=== PATIENT | female | born 1960 | race Caucasian/White ===

== ENCOUNTER 2017-10-05 17:39 | Emergency (ER) | payer MEDICAID ==
[~2017-10-05] VITALS: Ht 165.1 cm; Wt 68.0 kg
[2017-10-05 19:21] VITALS: BP 123/53
== END 2017-10-05 19:24 | disposition home or self-care (01) ==
LOC: ER 17:40
DX: M17.11 Unilateral primary osteoarthritis, right knee (principal); F17.200 Nicotine dependence, unspecified, uncomplicated; F15.10 Other stimulant abuse, uncomplicated
CPT/HCPCS: 73564; 99284

== ENCOUNTER 2017-10-23 22:17 | Emergency (ER) | payer MEDICAID ==
[~2017-10-23] VITALS: Ht 167.6 cm; Wt 67.8 kg
[2017-10-23 23:07] VITALS: BP 135/84
[2017-10-23] MEDS ORDERED: cephalexin 250mg capsule PO ONE (23:35)
[2017-10-23] MEDS ORDERED: sulfamethoxazole/trimethoprim DS (800/160mg) tablet PO ONE (23:35)
[2017-10-23] MEDS ORDERED: CEPH500C5 PO (23:49)
[2017-10-23] MEDS ORDERED: BACDS PO (23:49)
== END 2017-10-24 00:25 | disposition home or self-care (01) ==
LOC: ER 22:18
DX: L03.211 Cellulitis of face (principal); F17.210 Nicotine dependence, cigarettes, uncomplicated; F15.90 Other stimulant use, unspecified, uncomplicated; Z56.0 Unemployment, unspecified; Z60.2 Problems related to living alone; Z79.899 Other long term (current) drug therapy
CPT/HCPCS: 99283

== ENCOUNTER 2018-09-29 20:00 | Emergency (ER) | payer MEDICAID ==
[~2018-09-29] VITALS: Ht 165.1 cm; Wt 100.0 kg
[~2018-09-29 20:00] MED LIST: FAMO-128 PO; IBUP-1985 PO
[2018-09-29 20:59] VITALS: BP 125/70
== END 2018-09-29 21:06 | disposition home or self-care (01) ==
LOC: ER 20:00
DX: N93.9 Abnormal uterine and vaginal bleeding, unspecified (principal); K21.9 Gastro-esophageal reflux disease without esophagitis; F15.90 Other stimulant use, unspecified, uncomplicated; Z79.899 Other long term (current) drug therapy; Z56.0 Unemployment, unspecified; Z60.2 Problems related to living alone
CPT/HCPCS: 99283

== ENCOUNTER 2018-11-11 20:11 | Emergency (ER) | payer MEDICAID ==
[~2018-11-11] VITALS: Ht 165.1 cm; Wt 110.0 kg
[~2018-11-11 20:11] MED LIST changes: +CYCL-1 PO
[2018-11-11 20:16] VITALS: BP 160/74
== END 2018-11-11 21:51 | disposition home or self-care (01) ==
LOC: ER 20:11
DX: F15.90 Other stimulant use, unspecified, uncomplicated (principal); F10.99 Alcohol use, unspecified with unspecified alcohol-induced disorder; F17.200 Nicotine dependence, unspecified, uncomplicated; K21.9 Gastro-esophageal reflux disease without esophagitis; Z56.0 Unemployment, unspecified; Z60.2 Problems related to living alone; Z79.899 Other long term (current) drug therapy; Y90.9 Presence of alcohol in blood, level not specified
CPT/HCPCS: 99281

== ENCOUNTER 2018-12-08 05:27 | Inpatient (IN) | payer MEDICAID, OTHER ==
[2018-12-05 12:07] LABS: BASOPHILS # (AUTO) 0.1 X10'3 (0-0.2); BASOPHILS % (AUTO) 0.8 % (0-1); EOSINOPHILS # (AUTO) 0.1 X10'3 (0-0.9); EOSINOPHILS % (AUTO) 1.6 % (0-6); LYMPHOCYTES # (AUTO) 2.6 X10'3 (1.1-4.8); MEAN CORPUSCULAR HEMOGLOBIN 26.8 PG (27.0-31.0); MEAN CORPUSCULAR HGB CONC 32.1 g/dL (33.0-36.5); MEAN CORPUSCULAR VOLUME 83.7 FL (78-98); MEAN PLATELET VOLUME 7.5 FL (7.4-10.4); MONOCYTES # (AUTO) 0.5 X10'3 (0-0.9); NEUTROPHILS # (AUTO) 4.8 X10'3 (1.8-7.7); NEUTROPHILS % (AUTO) 59.6 % (42-75); PRE OP HEMOGLOBIN 13.8 g/dL (12.0-16.0); PRE OP PLATELET COUNT 282 X10'3 (140-440); RED BLOOD COUNT 5.14 X10'6 (4.20-5.60); RED CELL DISTRIBUTION WIDTH 13.8 % (11.5-14.5)
[2018-12-05 12:19] LABS: ALKALINE PHOSPHATASE 102 IU/L (46-116); BLOOD UREA NITROGEN 11 MG/DL (7-18); BUN/CREATININE RATIO 18.6 (6.6-38.0); CALCIUM 8.9 MG/DL (8.5-10.1); CHLORIDE 106 MMOL/L (99-107); CREATININE 0.59 MG/DL (0.40-0.90); PRE OP ALT 39 U/L (30-65); PRE OP ANION GAP 7 (8-16); PRE OP AST 26 U/L (10-37); PRE OP BILIRUB, TOTAL 0.3 MG/DL (0.0-1.0); PRE OP GLUCOSE 97 MG/DL (70-104); PRE OP POTASSIUM 4.1 MMOL/L (3.4-5.1); PRE OP SODIUM 142 MMOL/L (135-145); TOTAL PROTEIN 7.9 G/DL (6.4-8.2); eGFR > 90 ML/MIN
[2018-12-05 12:20] LABS: PRE OP PROTIME 9.7 SECONDS (9.0-12.0)
[2018-12-08] VITALS (19 sets, daily range): BP systolic 98–168; BP diastolic 52–94
[~2018-12-08] VITALS: Ht 165.1 cm; Wt 101.0 kg
[~2018-12-08 05:27] MED LIST changes: +ACET-2319 PO; -CYCL-1 PO; -FAMO-128 PO; -IBUP-1985 PO; +MIDAZolam 5mg/5ml vial ONE; +ROPI0.252 PO; +ROPIVAcaine 0.5% (5mg/ml) 30ml vial ONE; +VENL150C58 PO; +fentaNYL/PF 50MCG/1 ML 2ML syringe ONE; +propofol inj 20 ML IV ONE
[2018-12-08] MEDS ORDERED: cefazolin/dext.iso 2gm/100 ML IV ONE (05:30)
[2018-12-08] MEDS ORDERED: ringers solution, lacted 1,000 ML IV SCH ×2 (05:30→08:39)
[2018-12-08] MEDS ORDERED: tranexamic acid inj. 1,000 MG in normal saline 100 ML IV ONE (05:30)
[2018-12-08] MEDS ORDERED: vancomycin inj 1,500 MG in normal saline 300ml IV soln IV ONE (05:30)
[2018-12-08] MEDS ORDERED: LIDOcaine 1% (10mg/ml) 2ml vial ONE (06:06)
[2018-12-08] MEDS ORDERED: ceFAZolin 1000mg inj ONE (06:44)
[2018-12-08] MEDS ORDERED: tetracaine 1% (10mg/ml) pres. free inj. ONE (07:17)
[2018-12-08] MEDS ORDERED: cloNIDine hcl/PF 100mcg/ml inj ONE (07:17)
[2018-12-08] MEDS ORDERED: fentaNYL/PF 50MCG/1 ML 2ML syringe ONE (07:20)
[2018-12-08] MEDS ORDERED: MIDAZolam 1mg/ml 10ml vial ONE (07:20)
[2018-12-08] MEDS ORDERED: ePHEDrine 50MG/ML INJ. ONE (07:41)
[2018-12-08] MEDS ORDERED: ondansetron/PF 4mg/2ml inj IV PRN ×2 (08:40→10:45)
[2018-12-08] MEDS ORDERED: morphine 4 MG/ML inj SYRINge IV PRN ×2 (08:40)
[2018-12-08] MEDS ORDERED: meperidine/PF 25mg/ml syringe IV PRN ×3 (08:40)
[2018-12-08] MEDS ORDERED: proCHLORperazine 10 MG/2 ml inj IV PRN (08:40)
[2018-12-08] MEDS ORDERED: dexamethasone sod phosphate 4mg/ml inj. ONE (09:56)
[2018-12-08] MEDS ORDERED: ROPIVAcaine 0.5% (5mg/ml) 30ml vial ONE (09:56)
--- NOTE | 2018-12-08 10:35 | NUR ---
ADMITTED TO PACU FROM OR ACCOMPANIED BY ANESTHESIA. INTIAL PHYSICAL ASSESSMENT DONE AND RECORDED. AWAKE AND RESPONSE ON ARRIVE YO PACU, REPORT RECEIVED FROM ANESTHESIA
[2018-12-08] MEDS ORDERED: dextrose ORAL solution 15 GM/59 ML bottle PO PRN ×2 (10:40)
[2018-12-08] MEDS ORDERED: MESSAGE TO PHARMACY PO ONE (10:40)
[2018-12-08] MEDS ORDERED: dextrose 50%-water 50ml dispensing syringe IV PRN ×2 (10:40)
[2018-12-08] MEDS ORDERED: glucagon, human recombinant 1mg kit SUBCUT PRN (10:40)
[2018-12-08] MEDS ORDERED: magnesium hydroxide 30ml (MOM) UD suspension PO PRN (10:45)
[2018-12-08] MEDS ORDERED: HYDROmorphone inj. 0.5 MG/0.5 ML DISP.SYRIN IV PRN (10:45)
[2018-12-08] MEDS ORDERED: diphenhydrAMINE 25mg capsule PO PRN ×2 (10:45)
[2018-12-08] MEDS ORDERED: acetaminophen 325mg tablet PO PRN (10:45)
[2018-12-08] MEDS ORDERED: HYDROcodone/acetaminophen 10/325mg tab PO PRN (10:45)
[2018-12-08] MEDS ORDERED: bisacodyl 10mg suppository rectal RC PRN (10:45)
--- NOTE | 2018-12-08 11:45 | NUR ---
PACU DISCHARGE CRITERIA MET, REPORT GIVEN TO FLOOR. DENIES PAIN OR DISCOMFORT, TRANSFERRED TO ROOM IN STABLE GOOD CONDITION.
[2018-12-08] MEDS: HYDROcodone/acetaminophen 10/325mg tab PO PRN ×3 (13:53→21:14)
[2018-12-08] MEDS: ceFAZolin 1GM/D5W- ADD-VANTAGE 50 ML IV SCH (17:17)
[2018-12-08] MEDS: aspirin 81mg tablet.DR PO SCH (17:17)
[2018-12-08] MEDS: potassium Cl 20mEq in NS 1,000 ML IV SCH (17:57)
[2018-12-08] MEDS ORDERED: vancomycin/NS 1 GM ADD-VANTAGE 250 ML IV SCH (20:00)
[2018-12-08] MEDS: ketorolac trometh. 30mg/ml inj. IV SCH (20:47)
[2018-12-08] MEDS: sennosides 8.6mg tablet PO SCH (20:47)
[2018-12-08] MEDS: ROPINIRole 0.25mg tablet PO SCH (20:47)
[2018-12-08] MEDS: insulin glargine (Lantus) pen - multi-dose SQ SCH (21:18)
[2018-12-09] MEDS: ceFAZolin 1GM/D5W- ADD-VANTAGE 50 ML IV SCH (00:02)
[2018-12-09] MEDS: potassium Cl 20mEq in NS 1,000 ML IV SCH ×2 (00:03→10:34)
[2018-12-09] MEDS: HYDROcodone/acetaminophen 10/325mg tab PO PRN ×5 (01:22→19:14)
[2018-12-09 02:00] VITALS: BP 135/75
[2018-12-09] MEDS: ketorolac trometh. 30mg/ml inj. IV SCH ×4 (02:16→20:26)
[2018-12-09 06:00] VITALS: BP 124/78
--- NOTE | 2018-12-09 06:09 | NUR ---
Report given to Benjie OWUSU.
[2018-12-09 06:10] LABS: BASOPHILS % (AUTO) 0.1 % (0-1); EOSINOPHILS % (AUTO) 0 % (0-6); HEMATOCRIT 29.5 % (35.0-45.0); HEMOGLOBIN 9.7 g/dl (12.0-16.0); LYMPHOCYTES # (AUTO) 0.9 X10'3 (1.1-4.8); LYMPHOCYTES % (AUTO) 12.2 % (21-51); MEAN CORPUSCULAR HEMOGLOBIN 27.2 PG (27.0-31.0); MEAN CORPUSCULAR HGB CONC 32.9 g/dL (33.0-36.5); MEAN CORPUSCULAR VOLUME 82.8 FL (78-98); MEAN PLATELET VOLUME 7.6 FL (7.4-10.4); MONOCYTES # (AUTO) 0.8 X10'3 (0-0.9); MONOCYTES % (AUTO) 10.5 % (2-12); NEUTROPHILS # (AUTO) 5.7 X10'3 (1.8-7.7); NEUTROPHILS % (AUTO) 77.2 % (42-75); PLATELET COUNT 193 X10'3 (140-440); RED BLOOD COUNT 3.57 X10'6 (4.20-5.60); RED CELL DISTRIBUTION WIDTH 13.2 % (11.5-14.5); WHITE BLOOD COUNT 7.4 X10'3 (4.5-11.0)
[2018-12-09 06:16] LABS: ALANINE AMINOTRANSFERASE 84 U/L (12-78); ALKALINE PHOSPHATASE 65 IU/L (46-116); ANION GAP 9 (8-16); ASPARTATE AMINO TRANSFERASE 65 U/L (10-37); BILIRUBIN,TOTAL 0.4 MG/DL (0.1-1.0); BLOOD UREA NITROGEN 14 MG/DL (7-18); CALCIUM 8.8 MG/DL (8.5-10.1); CHLORIDE 105 MMOL/L (99-107); CREATININE 0.56 MG/DL (0.40-0.90); GLUCOSE 124 MG/DL (70-104); POTASSIUM 4.5 MMOL/L (3.5-5.1); SODIUM 139 MMOL/L (135-145); TOTAL CARBON DIOXIDE 25.2 MMOL/L (24-32); eGFR > 90 ML/MIN
--- NOTE | 2018-12-09 06:50 | NUR ---
Patient in room ORTHO 4024. I have received report from Alexa Duggan RN and had the opportunity to ask questions and assume patient care.
[2018-12-09] MEDS: insulin Lispro (HumaLOG) vial - multi-dose SQ SCH ×3 (08:13→19:08)
[2018-12-09] MEDS: aspirin 81mg tablet.DR PO SCH ×2 (08:14→17:14)
[2018-12-09 10:00] VITALS: BP_SYST 104; BP_SYST 123; BP_DIAS 64; BP_DIAS 79
[2018-12-09 14:00] VITALS: BP 117/77
--- NOTE | 2018-12-09 14:22 | NUR ---
patient requested to have blood sugar taken she was feeling a little off, blood sugar was 103 whe checked and offered a snack of applesauce, will continue to monitor
--- NOTE | 2018-12-09 16:07 | NUR ---
Joint replacement/DM consults: Pt s/p joint surgery hx DM A1C <7 and not appropriate for ed at this time. Pt PO 75-100% carb controlled meals meeting needs post-op. No nutrition concerns at this time. Addendum: 12/09/18 at [address] Amended: Links added.
[2018-12-09 18:00] VITALS: BP 120/87
--- NOTE | 2018-12-09 18:05 | NUR ---
Report received from Benjie OWUSU, assumed care of patient.
--- NOTE | 2018-12-09 18:05 | NUR ---
Problems reprioritized. Patient report given, questions answered & plan of care reviewed with Alexa Duggan RN.
[2018-12-09] MEDS: ROPINIRole 0.25mg tablet PO SCH (20:26)
[2018-12-09] MEDS: sennosides 8.6mg tablet PO SCH (20:26)
[2018-12-09] MEDS: insulin glargine (Lantus) pen - multi-dose SQ SCH (21:06)
[2018-12-09 22:00] VITALS: BP 131/68
[2018-12-10] MEDS: ketorolac trometh. 30mg/ml inj. IV SCH (01:52)
[2018-12-10] MEDS: HYDROcodone/acetaminophen 10/325mg tab PO PRN ×4 (05:35→19:06)
[2018-12-10 06:00] VITALS: BP 138/96
--- NOTE | 2018-12-10 06:00 | NUR ---
Patient in room ORTHO 4024. I have received report from and had the opportunity to ask questions and assume patient care Alexa Duggan, RN
[2018-12-10 06:04] LABS: BASOPHILS % (AUTO) 0.7 % (0-1); EOSINOPHILS # (AUTO) 0.1 X10'3 (0-0.9); EOSINOPHILS % (AUTO) 1.5 % (0-6); HEMATOCRIT 25.6 % (35.0-45.0); HEMOGLOBIN 8.5 g/dl (12.0-16.0); LYMPHOCYTES # (AUTO) 1.9 X10'3 (1.1-4.8); LYMPHOCYTES % (AUTO) 30.5 % (21-51); MEAN CORPUSCULAR HEMOGLOBIN 27.9 PG (27.0-31.0); MEAN CORPUSCULAR HGB CONC 33.4 g/dL (33.0-36.5); MEAN CORPUSCULAR VOLUME 83.7 FL (78-98); MEAN PLATELET VOLUME 7.6 FL (7.4-10.4); MONOCYTES # (AUTO) 0.7 X10'3 (0-0.9); MONOCYTES % (AUTO) 11.2 % (2-12); NEUTROPHILS # (AUTO) 3.5 X10'3 (1.8-7.7); NEUTROPHILS % (AUTO) 56.1 % (42-75); PLATELET COUNT 175 X10'3 (140-440); RED BLOOD COUNT 3.06 X10'6 (4.20-5.60); RED CELL DISTRIBUTION WIDTH 13.9 % (11.5-14.5); WHITE BLOOD COUNT 6.2 X10'3 (4.5-11.0)
[2018-12-10 06:10] LABS: ALANINE AMINOTRANSFERASE 56 U/L (12-78); ALBUMIN 2.7 G/DL (3.4-5.0); ALBUMIN/GLOBULIN RATIO 0.9 (1.1-1.5); ALKALINE PHOSPHATASE 67 IU/L (46-116); ANION GAP 8 (8-16); ASPARTATE AMINO TRANSFERASE 25 U/L (10-37); BILIRUBIN,TOTAL 0.3 MG/DL (0.1-1.0); BLOOD UREA NITROGEN 18 MG/DL (7-18); CALCIUM 8.7 MG/DL (8.5-10.1); CHLORIDE 111 MMOL/L (99-107); GLUCOSE 93 MG/DL (70-104); POTASSIUM 4.7 MMOL/L (3.5-5.1); SODIUM 145 MMOL/L (135-145); TOTAL CARBON DIOXIDE 26.5 MMOL/L (24-32); TOTAL PROTEIN 5.7 G/DL (6.4-8.2); eGFR > 90 ML/MIN
--- NOTE | 2018-12-10 06:28 | NUR ---
Report given to Irma OWUSU.
[2018-12-10] MEDS: insulin Lispro (HumaLOG) vial - multi-dose SQ SCH ×2 (09:59→19:38)
[2018-12-10] MEDS: aspirin 81mg tablet.DR PO SCH ×2 (10:02→18:12)
[2018-12-10 18:30] VITALS: BP 146/74
[2018-12-10] MEDS ORDERED: venlafaxine XR 75mg capsule (Q24H) PO ONE (19:45)
[2018-12-10] MEDS ORDERED: venlafaxine XR 75mg capsule (Q24H) PO SCH (21:00)
[2018-12-10] MEDS: insulin glargine (Lantus) pen - multi-dose SQ SCH (21:00)
[2018-12-10] MEDS: sennosides 8.6mg tablet PO SCH (21:24)
[2018-12-10] MEDS: ROPINIRole 0.25mg tablet PO SCH (21:24)
[2018-12-10] MEDS: celeCOXIB 100mg capsule PO SCH (21:24)
[2018-12-10 22:00] VITALS: BP 131/75
[2018-12-11] MEDS: HYDROcodone/acetaminophen 10/325mg tab PO PRN ×3 (03:34→12:10)
[2018-12-11 05:33] LABS: BASOPHILS # (AUTO) 0.1 X10'3 (0-0.2); BASOPHILS % (AUTO) 0.9 % (0-1); EOSINOPHILS # (AUTO) 0.2 X10'3 (0-0.9); EOSINOPHILS % (AUTO) 2.4 % (0-6); HEMATOCRIT 24.5 % (35.0-45.0); LYMPHOCYTES # (AUTO) 1.9 X10'3 (1.1-4.8); LYMPHOCYTES % (AUTO) 27.4 % (21-51); MEAN CORPUSCULAR HEMOGLOBIN 27.2 PG (27.0-31.0); MEAN CORPUSCULAR HGB CONC 32.9 g/dL (33.0-36.5); MEAN CORPUSCULAR VOLUME 82.9 FL (78-98); MEAN PLATELET VOLUME 7.7 FL (7.4-10.4); MONOCYTES # (AUTO) 0.6 X10'3 (0-0.9); MONOCYTES % (AUTO) 9.3 % (2-12); NEUTROPHILS # (AUTO) 4.1 X10'3 (1.8-7.7); PLATELET COUNT 178 X10'3 (140-440); RED BLOOD COUNT 2.95 X10'6 (4.20-5.60); RED CELL DISTRIBUTION WIDTH 13.3 % (11.5-14.5); WHITE BLOOD COUNT 6.8 X10'3 (4.5-11.0)
[2018-12-11 05:46] LABS: ALANINE AMINOTRANSFERASE 43 U/L (12-78); ALBUMIN 2.6 G/DL (3.4-5.0); ALBUMIN/GLOBULIN RATIO 0.9 (1.1-1.5); ALKALINE PHOSPHATASE 68 IU/L (46-116); ANION GAP 7 (8-16); ASPARTATE AMINO TRANSFERASE 18 U/L (10-37); BILIRUBIN,TOTAL 0.4 MG/DL (0.1-1.0); BLOOD UREA NITROGEN 13 MG/DL (7-18); BUN/CREATININE RATIO 28.9 (6.6-38.0); CALCIUM 8.3 MG/DL (8.5-10.1); CHLORIDE 106 MMOL/L (99-107); CREATININE 0.45 MG/DL (0.40-0.90); GLUCOSE 102 MG/DL (70-104); POTASSIUM 4.2 MMOL/L (3.5-5.1); SODIUM 140 MMOL/L (135-145); TOTAL CARBON DIOXIDE 26.9 MMOL/L (24-32); TOTAL PROTEIN 5.6 G/DL (6.4-8.2); eGFR > 90 ML/MIN
--- NOTE | 2018-12-11 06:45 | NUR ---
Patient in room ORTHO 4024. I have received report from FRANCOISE Mari and had the opportunity to ask questions and assume patient care. Patient is currently resting in bed, bed locked and low, call light in reach. No acute distress, will continue to monitor.
[2018-12-11] MEDS: aspirin 81mg tablet.DR PO SCH (08:04)
[2018-12-11] MEDS: celeCOXIB 100mg capsule PO SCH (08:04)
[2018-12-11 10:14] VITALS: BP 135/88
--- NOTE | 2018-12-11 14:04 | NUR ---
Patient is refusing insulin coverage for her meals, blood sugars have been fine without nutritional coverage. Will continue to monitor.
--- NOTE | 2018-12-11 15:22 | NUR ---
Received orders to discharge patient to [facility], report called at 1520, patient to be picked up at 1530.
--- NOTE | 2018-12-11 15:37 | NUR ---
Transport arrived to take patient to [facility], discharge packet given, IV removed, catheter tip intact, hemostasis achieved, patient belongings gathered. Patient in stable condition at time of discharge.
== END 2018-12-11 15:35 | DRG 302 ==
LOC: PAS IN 05:27 → EDSTATUS 07:30 → ORTHO 4S 13:40
PROVIDERS: ADMIT Orthopaedic Surgery; ATTEND Orthopaedic Surgery
PROC: 3E0T3BZ Introduction of Anesthetic Agent into Peripheral Nerves and Plexi, Percutaneous Approach (ICD-10-PCS; 2018-12-08)
PROC: 0SRC0J9 Replacement of Right Knee Joint with Synthetic Substitute, Cemented, Open Approach (ICD-10-PCS; principal; 2018-12-08 07:21)
DX: M17.11 Unilateral primary osteoarthritis, right knee (principal); E11.9 Type 2 diabetes mellitus without complications; J44.9 Chronic obstructive pulmonary disease, unspecified; G25.81 Restless legs syndrome; F32.9 Major depressive disorder, single episode, unspecified; Z86.73 Personal history of transient ischemic attack (TIA), and cerebral infarction without residual deficits
CPT/HCPCS: 36415; 80053; 82948; 83036; 85025; 85610; 85730; 87081; 97110; 97116; 97162; 97530; A4215; A6455; A7000; C1713; C1758; C1776; G0378; J0690; J0735; J1100; J1170; J1815; J1885; J2001; J2250; J2405; J2704; J2795; J3010; J3370; J3480; J7120

== ENCOUNTER 2020-05-12 11:42 | Emergency (ER) | payer MEDICAID ==
[~2020-05-12] VITALS: Ht 165.1 cm; Wt 109.1 kg
[~2020-05-12 11:42] MED LIST changes: -ACET-2319 PO; -MIDAZolam 5mg/5ml vial ONE; -ROPIVAcaine 0.5% (5mg/ml) 30ml vial ONE; -fentaNYL/PF 50MCG/1 ML 2ML syringe ONE; -propofol inj 20 ML IV ONE
== END 2020-05-12 13:47 | disposition home or self-care (01) ==
LOC: ER 11:42
DX: R50.9 Fever, unspecified (principal); R06.02 Shortness of breath; Z20.828 Contact with and (suspected) exposure to other viral communicable diseases; K21.9 Gastro-esophageal reflux disease without esophagitis; F15.90 Other stimulant use, unspecified, uncomplicated; F19.90 Other psychoactive substance use, unspecified, uncomplicated; Z72.89 Other problems related to lifestyle; Z60.2 Problems related to living alone; Z56.0 Unemployment, unspecified; Z79.899 Other long term (current) drug therapy
CPT/HCPCS: 36415; 87635; 99283

== ENCOUNTER 2024-03-18 12:03 | Emergency (ER) | payer MEDICAID ==
[~2024-03-18] VITALS: Ht 165.1 cm; Wt 97.4 kg
[2024-03-18 12:59] LABS: BILIRUBIN,URINE NEGATIVE (Neg); CLARITY,URINE SLIGHTLY CLOUDY (Clear); COLOR,URINE YELLOW (Yellow); GLUCOSE, URINE >=1000 mg/dl (Neg); KETONES,URINE TRACE mg/dl (Neg); LEUKOCYTE ESTERASE ,URINE NEGATIVE (Neg); NITRITES, URINE NEGATIVE (Neg); OCCULT BLOOD,URINE NEGATIVE (Neg); PROTEIN,URINE NEGATIVE (Neg); UROBILINOGEN,URINE 0.2 E.U/dL (0.2-1.0)
[2024-03-18 13:08] LABS: SQUAMOUS EPITHELIAL CELL,UR MANY /LPF (FEW); UA COLLECTION TYPE VOIDED
[2024-03-18 13:09] LABS: BACTERIA,URINE NONE SEEN /HPF (Neg); RBC,URINE 0-2 /HPF (0-2); YEAST FEW /HPF (NEGATIVE)
[2024-03-18 14:03] VITALS: BP 168/102; PULSE 94; RESP 14; O2SAT 98
[2024-03-18] MEDS ORDERED: DOCU-151 PO (14:06)
[2024-03-18] MEDS ORDERED: HYDR25SU32 RC (14:06)
[2024-03-18 14:15] VITALS: TEMP 98.2
== END 2024-03-18 14:17 | disposition home or self-care (01) ==
LOC: ER 12:04
DX: K64.4 Residual hemorrhoidal skin tags (principal); K62.89 Other specified diseases of anus and rectum; K21.9 Gastro-esophageal reflux disease without esophagitis; F15.90 Other stimulant use, unspecified, uncomplicated; Z79.899 Other long term (current) drug therapy
CPT/HCPCS: 81001; 99283

== ENCOUNTER 2024-12-27 20:09 | Emergency (ER) | payer MEDICAID ==
[~2024-12-27] VITALS: Ht 167.6 cm; Wt 90.9 kg
[~2024-12-27 20:09] MED LIST changes: +DOCU-151 PO; +HYDR25SU32 RC
[2024-12-27] MEDS ORDERED: ENAL-76 PO (20:46)
[2024-12-27] MEDS ORDERED: gabapentin (20:46)
--- NOTE | 2024-12-27 21:24 | Physician Documentation ---
History of Present Illness ~ Chief Complaint: Detox Clearance Stated Complaint: DETOX Time Seen by MD: 21:07 Primary Medical Doctor: [facility] Patient is a 64-year-old female that presents to the emergency department with a request for help to withdrawal from methamphetamine and alcohol. Patient reports that she last used methamphetamine earlier today and last use alcohol at approximately 2:00 a.m. this afternoon. Patient reports that she is a daily user and is concerned about withdrawing without help. 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 Patient reports that she has used methamphetamine for many years and has been a consistent alcohol user for the last 6 years. Reports she has a history of diabetes no other significant past medical history reported at this time. Tetanus within 5 years?: No Medication Reconciliation Allergies: Coded Allergies: No Known Allergies (Unverified , 12/27/24) Scheduled Docusate Sodium (Colace), 1 CAP PO Q12H Enalapril Maleate (Enalapril Maleate), 1 TAB PO DAILY, (Reported) Hydrocortisone Acetate (Anusol-Hc), 1 SUPP RC Q12H Ropinirole HCl (Requip), 0.5 MG PO HS, (Reported) Venlafaxine Hcl (Venlafaxine Hcl Er), 1 CAP PO HS, (Reported) Miscellaneous Medications [gabapentin], (Reported) Past Medical History Past Medical History: GERD Past Surgical History: noncontributory Alcohol Use: Occasionally Drug Use: methamphetamine, other Lives with: Alone Lives In: Home Occupation: unemployed Review of Systems ROS As stated above in the HPI, otherwise all systems are reviewed and negative. Physical Exam Vital Signs: Temperature: 98.4, Source: Oral, Heart Rate: 106, Respiratory Rate: 16, BP: 153/103, Pulse Oximetry: 97, Weight: 90.910 Physical Exam VITALS: Reviewed and as above. GENERAL: Alert, no apparent distress. HEENT: Normocephalic, atraumatic, PERRL, EOMI, dry mucosa, no erythema RESPIRATORY: Lungs clear, normal breath sounds, no respiratory distress. CHEST: No accessory muscle use, no retractions CV: Regular rate, rhythm, no edema, no murmur, No: JVD GI: Soft, non-tender, bowels sounds present, no rebound, guarding, or rigidity BACK: No CVA tenderness, or swelling MUSCULOSKELETAL No deformities, no edema SKIN: Warm and dry, no rash NEURO: Oriented x4, No motor or sensory deficit PSYCH: Normal mood and affect, no agitation Progress Results/Orders Results/Orders Vital Signs 12/27/24 20:38 Temp 98.4 Pulse 106 Resp 16 B/P (MAP) 153/103 Pulse Ox 97 Medical Decision Making Findings Patient presented for help withdrawing from alcohol and drugs. Patient was informed that we do not do alcohol withdrawal or drug withdrawal here in the emergency department we do assist with clearance to be admitted into the alcohol and drug treatment rehabilitation center. Precautions and information on in prior drug rehabilitation center were provided to the patient. Patient will go home tonight report to the rehabilitation center in the morning and then return to us for medical clearance so that she can be admitted to the Center tomorrow. Patient was given strict return precautions. Education was provided to patient that she is able to return here if she has any medical symptoms or any other concerns that she needs addressed. Differential Dx:Considerations: Intoxication - ETOH, Intoxication - other drug, Sub. Abuse -continuous, Sub. Abuse-intermittent, Skull fracture, Fracture - other bone, Personality disorder, Closed head injury, Cervical spine injury, Abrasion, Confusion, Hematoma, Laceration, Foreign body, Dehydration, Encephalopathy, Hepatitis, Pancreatitis, Thiamine deficiency, Other Departure Disposition: 01 HOME / SELF CARE / HOMELESS Impression: Primary Impression: Alcohol abuse Additional Impression: Methamphetamine use Condition: Stable Discharge Instructions: Alcohol Withdrawal Syndrome, Amphetamines Use Disorder Additional Instructions: Patient presented for help withdrawing from alcohol and drugs. Patient was informed that we do not do alcohol withdrawal or drug withdrawal here in the emergency department we do assist with clearance to be admitted into the alcohol and drug treatment rehabilitation center. Precautions and information on in prior drug rehabilitation center were provided to the patient. Patient will go home tonight report to the rehabilitation center in the morning and then return to us for medical clearance so that she can be admitted to the Center tomorrow. Patient was given strict return precautions. Education was provided to patient that she is able to return here if she has any medical symptoms or any other concerns that she needs addressed. Please follow up with the [facility] [place] in the morning. Please return to the emergency department if you have any additional concerns or symptoms that you would like to have addressed. Referrals: NO PRIMARY CARE PROVIDER (PCP) Education Educated: Patient Educated regarding: diagnosis, treatment, need for follow up Signature Scribe Signature: A Attestation: Scribed for Kacy Jones by TANK Mirza . 12/27/24 21:25 KACY JONES Dec 27, 2024 21:24
[2024-12-27 21:49] VITALS: BP 150/99; PULSE 99; RESP 18; TEMP 98.6; O2SAT 99
== END 2024-12-27 21:50 | disposition home or self-care (01) ==
LOC: ER 20:09
DX: F10.10 Alcohol abuse, uncomplicated (principal); E11.9 Type 2 diabetes mellitus without complications; F15.90 Other stimulant use, unspecified, uncomplicated; K21.9 Gastro-esophageal reflux disease without esophagitis; Y90.9 Presence of alcohol in blood, level not specified
CPT/HCPCS: 99282